=== PATIENT | female | born 1950 | race Caucasian/White ===

== ENCOUNTER 2016-06-09 10:52 | Emergency (ER) | payer MEDICARE, OTHER ==
[2016-06-09] MEDS ORDERED: PANTOPRAZOLE 40 MG/10 ML VIAL IVP STA (11:13)
[2016-06-09] MEDS ORDERED: SODIUM CHLORIDE 0.9% 1,000 ML IV STA (11:13)
--- NOTE | 2016-06-09 11:16 | ED ---
GI Bleed HPI - General Chief complaint: GI Bleed Stated complaint: blood in stool,vomiting Time Seen by Provider: 06/09/16 11:05 Source: patient, RN notes reviewed Mode of arrival: ambulatory Limitations: no limitations - History of Present Illness Initial comments: 65-year-old female presents emergency Department chief complaint rectal bleeding. Patient states that she started last night with some nausea vomiting and states that returning to diarrhea but states it's all blood. 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 Patient states is bright red blood. Patient states she's never had anything like this in the past. She states she has had hemorrhoids in the past but states they are not giving her any issues and she has no rectal pain. Patient states she does have intermittent severe lower abdominal cramping. She states it does not hurt present abdomen but states that the pain comes and then she usually has to have a bowel movement. Patient states that she has a history of diverticulitis and states that she is due for colonoscopy at the beginning of July. Patient denies any chest pain, dizziness, lightheadedness. Patient denies dysuria, hematuria denies any known sick contacts. - Related Data Home Medications Medication Instructions Recorded Confirmed Aspirin 81 mg PO DAILY 06/09/16 06/09/16 Citalopram Hydrobromide [CeleXA] 20 mg PO DAILY 06/09/16 06/09/16 Lisinopril-Hctz 10-12.5 mg 1 tab PO DAILY 06/09/16 06/09/16 [Zestoretic 10-12.5] Allergies Allergy/AdvReac Type Severity Reaction Status Date / Time No Known Allergies Allergy Verified 06/09/16 11:20 Review of Systems ROS Statement: Those systems with pertinent positive or pertinent negative responses have been documented in the HPI. ROS Other: All systems not noted in ROS Statement are negative. Past Medical History Past Medical History: Hyperlipidemia, Hypertension Additional Past Medical History / Comment(s): diverticulitis History of Any Multi-Drug Resistant Organisms: None Reported Past Surgical History: Cholecystectomy, Pacemaker Past Psychological History: Anxiety Smoking Status: Current some day smoker Past Alcohol Use History: None Reported Past Drug Use History: None Reported General Exam Limitations: no limitations General appearance: alert, in no apparent distress Head exam: Present: atraumatic, normocephalic, normal inspection Respiratory exam: Present: normal lung sounds bilaterally. Absent: respiratory distress, wheezes, rales, rhonchi, stridor Cardiovascular Exam: Present: regular rate, normal rhythm, normal heart sounds. Absent: systolic murmur, diastolic murmur, rubs, gallop, clicks GI/Abdominal exam: Present: soft, normal bowel sounds. Absent: distended, tenderness, guarding, rebound, rigid Rectal exam: Present: bloody stool, hemorrhoids (No active bleeding from hemorrhoid noted no thrombosed hemorrhoids) Back exam: Absent: CVA tenderness (R), CVA tenderness (L) Neurological exam: Present: alert, oriented X3, CN II-XII intact Skin exam: Present: warm, dry, intact, normal color. Absent: rash Course Vital Signs 06/09/16 10:54 Temperature 98.2 F Pulse Rate 79 Respiratory 17 Rate Blood Pressure 157/84 O2 Sat by Pulse 99 Oximetry Medical Decision Making - Medical Decision Making 65-year-old female presenting the emergency room for nausea vomiting rectal bleeding. Patient has not had any episodes while in the emergency department. Patient's hemoglobin is 16.2, vital signs are stable. Patient states the pain is subsiding at this time. I did inform the patient that we can keep her in the hospital placed on clear liquid diet and have GI or surgery see her. Patient was also given option to go home and follow up with Dr. Dee tomorrow morning and if symptoms worsen any time before then she is to return. She states that she rather go home at this time hold her aspirin, clear liquid diet at home and to return for any concerns. She does understand the risks of going home at this time. - Lab Data Result diagrams: 06/09/16 12:00 06/09/16 12:00 Lab Results 06/09/16 06/09/16 06/09/16 Range/Units 12:00 12:00 12:00 WBC 9.6 (3.8-10.6) k/uL RBC 5.22 (3.80-5.40) m/uL Hgb 16.2 H (11.4-16.0) gm/dL Hct 49.4 H (34.0-46.0) % MCV 94.5 (80.0-100.0) fL MCH 30.9 (25.0-35.0) pg MCHC 32.7 (31.0-37.0) g/dL RDW 13.3 (11.5-15.5) % Plt Count 184 (150-450) k/uL Neutrophils % 72 % Lymphocytes % 18 % Monocytes % 6 % Eosinophils % 1 % Basophils % 1 % Neutrophils # 7.0 (1.3-7.7) k/uL Lymphocytes # 1.8 (1.0-4.8) k/uL Monocytes # 0.5 (0-1.0) k/uL Eosinophils # 0.1 (0-0.7) k/uL Basophils # 0.1 (0-0.2) k/uL PT (9.0-12.0) sec INR (<1.1) APTT (22.0-30.0) sec Sodium 140 (137-145) mmol/L Potassium 4.1 (3.5-5.1) mmol/L Chloride 106 (98-107) mmol/L Carbon Dioxide 25 (22-30) mmol/L Anion Gap 9 mmol/L BUN 15 (7-17) mg/dL Creatinine 0.60 (0.52-1.04) mg/dL Est GFR (MDRD) Af Amer >60 (>60 ml/min/1.73 sqM) Est GFR (MDRD) Non-Af >60 (>60 ml/min/1.73 sqM) Glucose 103 H (74-99) mg/dL Calcium 9.2 (8.4-10.2) mg/dL Magnesium 1.8 (1.6-2.3) mg/dL Total Bilirubin 0.8 (0.2-1.3) mg/dL AST 23 (14-36) U/L ALT 40 (9-52) U/L Alkaline Phosphatase 71 (38-126) U/L Total Creatine Kinase 114 (30-135) U/L CK-MB (CK-2) 1.7 (0.0-2.4) ng/mL CK-MB (CK-2) Rel Index 1.5 Troponin I <0.012 (0.000-0.034) ng/mL Total Protein 6.4 (6.3-8.2) g/dL Albumin 3.7 (3.5-5.0) g/dL Lipase 27 (23-300) U/L Stool Occult Blood (Negative) 02/26/17 02/26/17 Range/Units 12:00 12:50 WBC (3.8-10.6) k/uL RBC (3.80-5.40) m/uL Hgb (11.4-16.0) gm/dL Hct (34.0-46.0) % MCV (80.0-100.0) fL MCH (25.0-35.0) pg MCHC (31.0-37.0) g/dL RDW (11.5-15.5) % Plt Count (150-450) k/uL Neutrophils % % Lymphocytes % % Monocytes % % Eosinophils % % Basophils % % Neutrophils # (1.3-7.7) k/uL Lymphocytes # (1.0-4.8) k/uL Monocytes # (0-1.0) k/uL Eosinophils # (0-0.7) k/uL Basophils # (0-0.2) k/uL PT 10.8 (9.0-12.0) sec INR 1.1 (<1.1) APTT 24.4 (22.0-30.0) sec Sodium (137-145) mmol/L Potassium (3.5-5.1) mmol/L Chloride (98-107) mmol/L Carbon Dioxide (22-30) mmol/L Anion Gap mmol/L BUN (7-17) mg/dL Creatinine (0.52-1.04) mg/dL Est GFR (MDRD) Af Amer (>60 ml/min/1.73 sqM) Est GFR (MDRD) Non-Af (>60 ml/min/1.73 sqM) Glucose (74-99) mg/dL Calcium (8.4-10.2) mg/dL Magnesium (1.6-2.3) mg/dL Total Bilirubin (0.2-1.3) mg/dL AST (14-36) U/L ALT (9-52) U/L Alkaline Phosphatase (38-126) U/L Total Creatine Kinase (30-135) U/L CK-MB (CK-2) (0.0-2.4) ng/mL CK-MB (CK-2) Rel Index Troponin I (0.000-0.034) ng/mL Total Protein (6.3-8.2) g/dL Albumin (3.5-5.0) g/dL Lipase (23-300) U/L Stool Occult Blood Positive H (Negative) Disposition Clinical Impression: Rectal bleeding Disposition: HOME SELF-CARE Condition: Stable Instructions: Gastrointestinal Bleeding (ED) Additional Instructions: Please hold your aspirin. Please follow-up with Dr. Dee tomorrow morning.Please return to the Emergency Department if symptoms worsen or any other concerns. Time of Disposition: 13:51
[2016-06-09 12:11] LABS: Basophils # (A) 0.1 k/uL (0-0.2); Basophils % (A) 1 %; CH 31.6; CHCM 33.6; Eosinophils # (A) 0.1 k/uL (0-0.7); Eosinophils % (A) 1 %; HCT 49.4 % (34.0-46.0); HDW 2.09; HGB 16.2 gm/dL (11.4-16.0); Luc # (Auto) 0.23; Luc % (Auto) 2; Lymphocytes # (A) 1.8 k/uL (1.0-4.8); Lymphocytes % (A) 18 %; MCH 30.9 pg (25.0-35.0); MCHC 32.7 g/dL (31.0-37.0); MCV 94.5 fL (80.0-100.0); Monocytes # (A) 0.5 k/uL (0-1.0); Monocytes % (A) 6 %; Neutrophils % (A) 72 %; RBC 5.22 m/uL (3.80-5.40); RDW 13.3 % (11.5-15.5); WBC 9.6 k/uL (3.8-10.6); WBC (Perox) 9.71
[2016-06-09 12:21] LABS: ALT 40 U/L (9-52); AST 23 U/L (14-36); Alkaline Phosphatase 71 U/L (38-126); Anion Gap 9 mmol/L; Blood Urea Nitrogen 15 mg/dL (7-17); Calcium 9.2 mg/dL (8.4-10.2); Carbon Dioxide 25 mmol/L (22-30); Chloride 106 mmol/L (98-107); Glucose 103 mg/dL (74-99); Magnesium 1.8 mg/dL (1.6-2.3); Non-African American GFR(MDRD) >60 (>60 ml/min/1.73 sqM); Potassium 4.1 mmol/L (3.5-5.1); Sodium 140 mmol/L (137-145); Total Bilirubin 0.8 mg/dL (0.2-1.3); Total Protein 6.4 g/dL (6.3-8.2)
[2016-06-09 12:33] LABS: Creatine Kinase 114 U/L (30-135)
[2016-06-09 12:46] LABS: Creatine Kinase MB 1.7 ng/mL (0.0-2.4); Troponin I <0.012 ng/mL (0.000-0.034)
[2016-06-09 12:49] LABS: INR 1.1 (<1.1); Partial Thromboplastin Time 24.4 sec (22.0-30.0); Prothrombin Time 10.8 sec (9.0-12.0)
[2016-06-09 14:12] VITALS: BP 140/60; PULSE 60; RESP 15; TEMP 99.4
== END 2016-06-09 14:14 | disposition home or self-care (01) ==
LOC: EC 10:52
DX: K62.5 Hemorrhage of anus and rectum (principal); I10 Essential (primary) hypertension; F41.9 Anxiety disorder, unspecified; Z79.82 Long term (current) use of aspirin; Z79.899 Other long term (current) drug therapy; F17.200 Nicotine dependence, unspecified, uncomplicated
CPT/HCPCS: 99283; 36415; 80053; 82550; 82553; 83690; 83735; 84484; 85025; 85610; 85730; 82272; 96374; C9113

== ENCOUNTER 2016-06-26 11:48 | Day surgery (SDC) | payer MEDICARE, OTHER ==
[2016-06-24 15:36] VITALS: BMI 31.8
[~2016-06-26 11:48] MED LIST: LACTATED RINGERS 1,000 ML IV SCH
[2016-06-26 12:37] VITALS: RESP 16; TEMP 97.3
[2016-06-26] MEDS ORDERED: LIDOCAINE 1% INJ 10MG/ML (20 ML MDV) ONE (12:45)
[2016-06-26] MEDS ORDERED: LACTATED RINGERS 1,000 ML IV ONE ×2 (12:45)
[2016-06-26] MEDS ORDERED: PROPOFOL 10 MG/ML 20 ML VIAL IV ONE (12:45)
--- NOTE | 2016-06-26 12:46 | P.GSHP ---
History of Present Illness H&P Date: 06/26/16 Chief Complaint: Screening colonoscopy This is a 66-year-old female referred from Dr. Paras Cosby. Patient rents today for screening colonoscopy. She denies any significant GI complaints. - Constitutional Constitutional: Reports as per HPI Past Medical History Past Medical History: Hypertension Additional Past Medical History / Comment(s): diverticulitis History of Any Multi-Drug Resistant Organisms: None Reported Past Surgical History: Cholecystectomy, Pacemaker Past Anesthesia/Blood Transfusion Reactions: Motion Sickness Type of Cardiac Device: Permanent Pacemaker Device Placement Date:: 2008 Past Psychological History: Anxiety Smoking Status: Current some day smoker Past Alcohol Use History: None Reported Past Drug Use History: None Reported - Past Family History Mother Family Medical History: Deep Vein Thrombosis (DVT) Father Family Medical History: Cancer Medications and Allergies Home Medications Medication Instructions Recorded Confirmed Type Aspirin 81 mg PO DAILY 06/09/16 06/26/16 History Citalopram Hydrobromide [CeleXA] 20 mg PO DAILY 06/09/16 06/26/16 History Lisinopril-Hctz 10-12.5 mg 1 tab PO DAILY 06/09/16 06/26/16 History [Zestoretic 10-12.5] Allergies Allergy/AdvReac Type Severity Reaction Status Date / Time No Known Allergies Allergy Verified 06/26/16 12:20 Surgical - Exam Vital Signs Temp Pulse Resp BP Pulse Ox 97.3 F L 53 L 16 115/65 96 06/26/16 12:36 06/26/16 12:36 06/26/16 12:36 06/26/16 12:36 06/26/16 12:36 - General well developed, no distress - Eyes PERRL - ENT normal pinna - Neck no masses - Respiratory normal expansion - Cardiovascular Rhythm: regular - Abdomen Abdomen: soft, non tender Assessment and Plan Plan: We'll perform screening colonoscopy.
--- NOTE | 2016-06-26 13:01 | P.OP ---
Date of Procedure: 06/26/16 Preoperative Diagnosis: Screening colonoscopy Postoperative Diagnosis: Diverticulosis Procedure(s) Performed: Colonoscopy Anesthesia: MAC Surgeon: Lukasz Connor Pathology: none sent Condition: stable Disposition: PACU Description of Procedure: The patient's placed on the endoscopy table in the lateral position. She received IV sedation. Digital rectal exam was performed which revealed no abnormalities. The flexible colonoscope was then placed patient anus and passed throughout the entire colon. The ileocecal valve was visualized. Cecum , ascending and transverse colon appeared normal. In the descending and sigmoid colon there was moderate diverticulosis. Scope was then brought back the rectum and this appeared normal. The scope was withdrawn for patient.
[2016-06-26 13:40] VITALS: BP 128/66; PULSE 49
== END 2016-06-26 14:33 | disposition home or self-care (01) ==
LOC: ORWHC2ENDO 11:48
PROVIDERS: ATTEND Surgery
DX: Z12.11 Encounter for screening for malignant neoplasm of colon (principal); K57.30 Diverticulosis of large intestine without perforation or abscess without bleeding; I10 Essential (primary) hypertension; Z95.0 Presence of cardiac pacemaker; F41.9 Anxiety disorder, unspecified; F17.200 Nicotine dependence, unspecified, uncomplicated; F32.9 Major depressive disorder, single episode, unspecified; Z79.82 Long term (current) use of aspirin; Z79.899 Other long term (current) drug therapy
CPT/HCPCS: J2001; J2704; G0121; 45378

== ENCOUNTER → 2018-12-23 | Outpatient (CLI) | payer MEDICARE, OTHER ==
[2018-12-23 13:50] LABS: Basophils # (A) 0.1 k/uL (0-0.2); Basophils % (A) 1 %; Eosinophils # (A) 0.3 k/uL (0-0.7); Eosinophils % (A) 3 %; HCT 44.8 % (34.0-46.0); Lymphocytes # (A) 2.8 k/uL (1.0-4.8); Lymphocytes % (A) 33 %; MCH 31.7 pg (25.0-35.0); MCHC 33.4 g/dL (31.0-37.0); MCV 94.9 fL (80.0-100.0); Mean Platelet Volume 8.1; Monocytes # (A) 0.5 k/uL (0-1.0); Monocytes % (A) 5 %; Neutrophils # (A) 4.7 k/uL (1.3-7.7); Neutrophils % (A) 55 %; Platelet Count 198 k/uL (150-450); RBC 4.72 m/uL (3.80-5.40); RDW 15.8 % (11.5-15.5); WBC 8.5 k/uL (3.8-10.6)
[2018-12-23 14:47] LABS: Erythrocyte Sedimentation Rate 9 mm/hr (0-20)
== END | disposition home or self-care (01) ==
LOC: LABWHC1 12:49
PROVIDERS: ATTEND Podiatrist
DX: M86.8X7 Other osteomyelitis, ankle and foot (principal)
CPT/HCPCS: 36415; 84075; 85025; 85652

== ENCOUNTER → 2019-01-19 | Outpatient (CLI) | payer MEDICARE, OTHER ==
--- NOTE | 2019-01-20 12:18 | NM ---
EXAMINATION TYPE: NM WBC limited DATE OF EXAM: 01/20/2019 COMPARISON: No plain film supplied for correlation HISTORY: Osteomyelitis left hallux Left great toe swelling and discoloration for 6 weeks TECHNIQUE: Following administration of 14.2 mCi Tc99m Ceretec. Images obtained 4 hour(s) and 23 mariann r(s) post injection. FINDINGS: At 4 hours there is increased uptake within the region of the first digit of the left foot as compare d to the right which is persistent at 23 hours IMPRESSION: Increased white blood cell uptake to the first digit of the left foot
== END | disposition home or self-care (01) ==
LOC: RADNMMAIN 06:54
PROVIDERS: ATTEND Podiatrist
DX: D72.829 Elevated white blood cell count, unspecified (principal)
CPT/HCPCS: 78805; A9569

== ENCOUNTER → 2019-02-12 | Outpatient (CLI) | payer MEDICARE, OTHER ==
--- NOTE | 2019-02-12 08:28 | XR ---
EXAMINATION TYPE: XR foot complete LT DATE OF EXAM: 02/12/2019 COMPARISON: None HISTORY: Osteomyelitis redness first digit TECHNIQUE: 3 view left foot FINDINGS: No acute fractures are evident. Hammertoes are present. There is soft tissue swelling over the distal great toe. There is loss of the cortex of the distal aspect of the distal phalanx. Some lo ss of the cortex of the medial aspect of the distal phalanx may be present as well. In the lateral p rojection there is some fragmentation of the distal phalanx. Findings could be compatible with osteom yelitis in the proper clinical setting. Remaining osseous structures appear intact. Soft tissues otherwise appear normal. IMPRESSION: 1. There is loss of the cortex of the distal portion distal phalanx and medial portion distal phalan x great toe with overlying soft tissue swelling. There appears to be a longitudinal fracture of the d istal aspect of the distal phalanx on the lateral projection. Findings can be compatible with osteomy elitis in the proper clinical setting. A Yellow level critical message alert has been initiated for Deshawn Atkinson MD via the [facility] Results System on 02/12/2019 8:25 AM. This message alert has been sent to Deshawn Atkinson MD via the preferences provided by the clinician for the receipt of Radiology Critical Findings. Message ID [id number].
--- NOTE | 2019-02-12 16:08 | NM ---
EXAMINATION TYPE: NM bone 3 phase DATE OF EXAM: 02/12/2019 COMPARISON: Plain film left foot same date, 01/19/2019 white blood cell scan HISTORY: Osteomyelitis Blood flow, blood pool and Delayed whole-body scanning was performed following the injection of 24.3 mCi Tc 99m MDP. Static Images were acquired 5.5 hours post injection. FINDINGS: Blood flow: There is increased radiotracer accumulation within the proximal right foot compared to th e left. Blood pool: On blood pool images there is focal radiotracer accumulation at the level of the ankle. S ome distal left first and second digit uptake may be present as well. Static images: There is increased radiotracer accumulation within the proximal right foot. Findings c ould be related to osteomyelitis or fracture. Comparison: Right blood cell scan performed 01/19/2019 i s compared. Radiotracer on the three-phase bone scan is more intense, especially on the right. IMPRESSION: 1. Increased radiotracer accumulation within the proximal right foot on all 3 phases of bone scan. Co rrelate for fracture or osteomyelitis. Point film correlation is recommended. 2. Uptake within the distal left foot could correspond to the abnormal findings on the x-ray of the s tamika date suggesting osteomyelitis.. This report appears less intense than on the right.
== END | disposition home or self-care (01) ==
LOC: RADNMMAIN 07:17
PROVIDERS: ATTEND Internal Medicine Infectious Disease
DX: M79.89 Other specified soft tissue disorders (principal); M86.9 Osteomyelitis, unspecified
CPT/HCPCS: 73630; 78315; A9503